=== PATIENT | female | born 1970 | race Caucasian/White ===

== ENCOUNTER → 2017-10-30 | Day surgery (SDC) | payer MEDICARE ==
[~2017-10-30] MED LIST: BUPROPION; BUPROPION HCL75 MG PO; BUSPIRONE HCL5 MG PO; CEFAZOLIN SOD 1 GM VIAL ONE; DEXAMETHASONE SOD PHOS INJ 4 MG/ML VIAL ONE; DIPHENHYDRAMINE HCL INJ 50 MG/ML VIAL ONE; FENTANYL CITRATE/PF 100MCG/2 ML INJ ONE; HYDROMORPHONE 1MG/1ML INJ ONE; LIDOCAINE HCL 2% LOCAL INJ 5 ML SDV VIAL INJ ONE; MIDAZOLAM HCL 2 MG/2 ML VIAL ONE; ONDANSETRON HCL INJ 2 MG/ML VIAL ONE; OXYCODONE/ACETAMINOPHEN 5-325 1 EACH TABLET ONE; PERCOCET 10-321 EACH PO; PHENTERMINE H37.5 M1; PRAZOSIN HCL1 MG; PROPOFOL IV EMULSION 10 MG/ML 20 ML VIAL ONE; QUETIAPINE FUM100 MG PO; SEVOFLURANE INHAL SOLN 250 ML PEN BTL ONE; ZOFRAN PO
--- NOTE | 2017-10-30 08:47 | Operative Report ---
DATE OF PROCEDURE: October 30, 2017 STATEMENT PROCESSOR: Darrell Hernandez PA-C The patient was brought to the operating room for induction of anesthesia. Throughout this case, my PA's assistance was necessary for retraction of soft tissue and positioning of the extremity. This allows for efficient and technically successful execution of the operation and is considered medically necessary. PREOPERATIVE DIAGNOSES 1. Left knee medial meniscal tear. 2. Lateral meniscal tear. 3. Anterior cruciate ligament tear. POSTOPERATIVE DIAGNOSES 1. Left knee medial meniscal tear. 2. Lateral meniscal tear. 3. Anterior cruciate ligament tear. PROCEDURES 1. Left knee arthroscopy. 2. Partial medial meniscectomy. 3. Partial lateral meniscectomy. 4. Debridement of anterior cruciate ligament stump. INDICATIONS: The patient is a 46-year-old lady who has clinic signs and symptoms consistent with tears of her medial and lateral meniscus, as well as her ACL. She is not active in any cutting or pivoting sports. She is not interesting in having an ACL reconstruction. However, she would like to proceed with partial medial and lateral meniscectomies. The risks and benefits have been explained. She states she understands and wishes to proceed. DESCRIPTION OF PROCEDURE: The patient was brought to the operating room and placed under general anesthetic. She had her left leg prepped and draped in a sterile manner. A preoperative time out was performed. The extremity was exsanguinated and a proximal tourniquet was inflated to 300 mmHg. Standard arthroscopy portals were established. The knee was insufflated with sterile saline and systematically inspected. There was synovitis in the suprapatellar pouch. 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 There was indeed a severe and complex tear of the medial meniscus and lateral meniscus. 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 There were some notch stenosis. Initial attention was directed towards the medial compartment. A combination of biting forceps and a mechanical shaver were used to debride the meniscus back to a stable margin. There was a large radial fragment that had been flipped up into the posterior fossa. The meniscus was debrided back to a stable margin. There were grade 1 secondary changes of the medial tibial plateau and medial femoral condyle. The lateral compartment was then addressed. There was a large complex tear that was mainly horizontal in the lateral meniscus. The inferior flap was primarily debrided. Before and after photographs were taken throughout the knee. The lateral meniscus was debrided back to a hook stable margin. Some evidence of fraying and chronic stump of the ACL was debrided to prevent any mechanical symptoms. The knee was thoroughly irrigated. The arthroscopic instruments were removed. The portal incisions were closed with nylon stitches. A sterile bandage was applied. The patient was extubated and transported to the recovery room in stable condition. Job#: [id number]
== END | disposition home or self-care (01) ==
LOC: OR 05:17
PROVIDERS: ATTEND Specialist
DX: S83.232A Complex tear of medial meniscus, current injury, left knee, initial encounter (principal); S83.272A Complex tear of lateral meniscus, current injury, left knee, initial encounter; M23.622 Other spontaneous disruption of posterior cruciate ligament of left knee; M22.42 Chondromalacia patellae, left knee; M65.862 Other synovitis and tenosynovitis, left lower leg; G89.29 Other chronic pain; K58.9 Irritable bowel syndrome, unspecified; K21.9 Gastro-esophageal reflux disease without esophagitis; M32.9 Systemic lupus erythematosus, unspecified; A69.20 Lyme disease, unspecified; F32.9 Major depressive disorder, single episode, unspecified; F41.9 Anxiety disorder, unspecified; F43.10 Post-traumatic stress disorder, unspecified; X58.XXXA Exposure to other specified factors, initial encounter; Y93.89 Activity, other specified; Y92.008 Other place in unspecified non-institutional (private) residence as the place of occurrence of the external cause; Z68.32 Body mass index [BMI] 32.0-32.9, adult
CPT/HCPCS: 29880; 81025; J0690; J1100; J1170; J1200; J2001; J2250; J2405